=== PATIENT | female | born 1980 | race African-American/Black ===

== ENCOUNTER 2017-12-03 02:56 | Emergency (ER) | payer SELFPAY ==
[2017-12-03] MEDS ORDERED: SODIUM CHLORIDE 1,000 ML IV STA (03:30)
[2017-12-03] MEDS ORDERED: ONDANSETRON 4 MG/2 ML VIAL IVPB ONE (03:30)
[2017-12-03] MEDS ORDERED: GLUCAGON 1 MG KIT IVPUSH ONE (03:32)
[2017-12-03 03:36] VITALS: BP 125/78; PULSE 81; TEMP 97.4; BMI 29.5
[2017-12-03 03:43] LABS: BASO % 0.8 % (0-2.0); EOS % 1.1 % (0-4.5); HEMATOCRIT 37.2 % (32.4-45.2); HEMOGLOBIN 12.7 GM/dL (10.7-15.3); MCH 31.8 pg (25.7-33.7); MCHC 34.2 g/dl (32.0-36.0); MEAN CELL VOLUME 93.2 fl (80-96); MEAN PLT VOLUME 9.6 fl (7.5-11.1); NEUT % 68.1 % (42.8-82.8); PLATELET COUNT 181 K/MM3 (134-434); RBC 3.99 M/mm3 (3.60-5.2); WHITE BLOOD COUNT 8.3 K/mm3 (4.0-10.0)
--- NOTE | 2017-12-03 03:52 | PDOC ---
History of Present Illness - General History Source: Patient Exam Limitations: No Limitations - History of Present Illness Initial Comments: 12/03/17 04:00 The patient is a 37 year old female with no significant PMH who presents to the emergency department for evaluation of epigastric abdominal pain. She describes her abdominal pain as an intermittent epigastric discomfort which lasts for a few minutes at a time with associated nausea. The patient denies sick contacts or recent travel. As per EMS, the patient was on a street corner and waved down EMS to stop, prompting her presentation. The patient denies chest pain, shortness of breath, headache and dizziness. Denies fever, chills, nausea, vomit, diarrhea and constipation. Denies dysuria, frequency, urgency and hematuria. Allergies: NKA Past surgical history: . Social history: No reported cigarette, alcohol, or drug use. PCP: None reported. <Kalen Woodson - Last Filed: 12/03/17 04:00> - General History Source: Patient Exam Limitations: No Limitations <Kalen Fajardo - Last Filed: 12/03/17 04:48> - General Chief Complaint: Pain Stated Complaint: abdominal pain Time Seen by Provider: 12/03/17 03:04 Past History <Kalen Woodson - Last Filed: 12/03/17 04:00> - Suicide/Smoking/Psychosocial Hx Smoking History: Never smoked Have you smoked in the past 12 months: No Information on smoking cessation initiated: No Hx Alcohol Use: No Drug/Substance Use Hx: No <Kalen Fajardo - Last Filed: 12/03/17 04:48> - Past Medical History Allergies/Adverse Reactions: Allergies Allergy/AdvReac Type Severity Reaction Status Date / Time No Known Allergies Allergy Verified 12/03/17 03:30 Review of Systems - Review of Systems Able to Perform ROS?: Yes Comments:: 12/03/17 04:01 GENERAL/CONSTITUTIONAL: No fever or chills. No weakness. HEAD, EYES, EARS, NOSE AND THROAT: No change in vision. No ear pain or discharge. No sore throat. CARDIOVASCULAR: No chest pain or shortness of breath. RESPIRATORY: No cough, wheezing, or hemoptysis. GASTROINTESTINAL: (+) Epigastric discomfort. (+) Nausea. No vomiting, diarrhea or constipation. GENITOURINARY: No dysuria, frequency, or change in urination. MUSCULOSKELETAL: No joint or muscle swelling or pain. No neck or back pain. SKIN: No rash NEUROLOGIC: No headache, vertigo, loss of consciousness, or change in strength/ sensation. ENDOCRINE: No increased thirst. No abnormal weight change. HEMATOLOGIC/LYMPHATIC: No anemia, easy bleeding, or history of blood clots. ALLERGIC/IMMUNOLOGIC: No hives or skin allergy. <Kalen Woodson - Last Filed: 12/03/17 04:00> *Physical Exam - Vital Signs Last Vital Signs Temp Pulse Resp BP Pulse Ox 97.4 F L 81 19 125/78 100 12/03/17 03:26 12/03/17 03:26 12/03/17 03:26 12/03/17 03:26 12/03/17 03:26 - Physical Exam Comments: 12/03/17 04:01 GENERAL: Awake, alert, and fully oriented, in no acute distress HEAD: No signs of trauma EYES: PERRLA, EOMI, sclera anicteric, conjunctiva clear ENT: Auricles normal inspection, hearing grossly normal, nares patent, oropharynx clear without exudates. Moist mucosa NECK: Normal ROM, supple, no lymphadenopathy, JVD, or masses LUNGS: Breath sounds equal, clear to auscultation bilaterally. No wheezes, and no crackles HEART: Regular rate and rhythm, normal S1 and S2, no murmurs, rubs or gallops ABDOMEN: (+) Mild epigastric tenderness. Negative [place] sign. Soft, normoactive bowel sounds. No guarding, no rebound. No masses EXTREMITIES: Normal range of motion, no edema. No clubbing or cyanosis. No cords, erythema, or tenderness NEUROLOGICAL: Cranial nerves II through XII grossly intact. Normal speech, normal gait SKIN: Warm, Dry, normal turgor, no rashes or lesions noted. <Kalen Woodson - Last Filed: 12/03/17 04:00> - Vital Signs Last Vital Signs Temp Pulse Resp BP Pulse Ox 97.4 F L 81 19 125/78 100 12/03/17 03:26 12/03/17 03:26 12/03/17 03:26 12/03/17 03:26 12/03/17 03:26 <Kalen Fajardo - Last Filed: 12/03/17 04:48> ED Treatment Course - LABORATORY CBC & Chemistry Diagram: 12/03/17 03:35 12/03/17 03:35 - ADDITIONAL ORDERS Additional order review: Laboratory Results 12/03/17 03:35 Serum , Qual Negative 12/03/17 03:35 RBC 3.99 MCV 93.2 MCHC 34.2 RDW 12.0 MPV 9.6 Neutrophils % 68.1 Lymphocytes % 19.0 Monocytes % 11.0 H Eosinophils % 1.1 Basophils % 0.8 - Medications Given in the ED: ED Medications Discontinued Medications Generic Name Dose Route Start Last Admin Trade Name Kathryn PRN Reason Stop Dose Admin Glucagon 1 mg 12/03/17 03:32 12/03/17 03:52 Glucagon - IVPUSH 12/03/17 03:33 Not Given ONCE ONE Ondansetron HCl 4 mg 12/03/17 03:30 12/03/17 03:50 Zofran Injection IVPB 12/03/17 03:31 4 mg ONCE ONE Administration <Kalen Woodson - Last Filed: 12/03/17 04:00> - LABORATORY CBC & Chemistry Diagram: 12/03/17 03:35 12/03/17 03:35 <Kalen Fajardo - Last Filed: 12/03/17 04:48> Medical Decision Making - Medical Decision Making 12/03/17 03:47 A portion of this note was documented by scribe services under my direction. I have reviewed the details of the note, within reason, and agree with the documentation with the following case summary and management plan written by me. Patient treated in the ED. Nursing notes are reviewed and incorporated into the medical decision-making. Vital signs reviewed. Peripheral IV access obtained by the nurse, laboratory studies are drawn and sent, reviewed and interpreted by myself. Vital Signs Temp Pulse Resp BP Pulse Ox 97.4 F L 81 19 125/78 100 12/03/17 03:26 12/03/17 03:26 12/03/17 03:26 12/03/17 03:26 12/03/17 03:26 37-year-old female patient reportedly no past medical history presents with intermittent few minutes of epigastric abdominal discomfort. Had some nausea but denies any fevers or vomiting. Denies dysuria or diarrhea. Denies sick contacts or recent travels. According to EMS, the patient was outside and on the street corner and flag down EMS. Patient does have a history of a . The patient has minimal tenderness in the epigastric and negative Amin sign. Differential includes gastritis. I have low suspicion for acute cholecystitis, pancreatitis. However, we'll draw blood work and treat with IV fluids. If the patient reports feeling better and work was unremarkable, the patient can be discharged with outpatient follow-up. 12/03/17 04:47 CBC, BMP 12/03/17 03:35 12/03/17 03:35 CMP Sodium 138 mmol/L (136-145) 12/03/17 03:35 Potassium 3.7 mmol/L (3.5-5.1) 12/03/17 03:35 Chloride 106 mmol/L (98-107) 12/03/17 03:35 Carbon Dioxide 25 mmol/L (21-32) 12/03/17 03:35 Anion Gap 7 (8-16) L 12/03/17 03:35 BUN 9 mg/dL (7-18) 12/03/17 03:35 Creatinine 0.8 mg/dL (0.55-1.02) 12/03/17 03:35 Creat Clearance w eGFR > 60 (>60) 12/03/17 03:35 Random Glucose 89 mg/dL (74-106) 12/03/17 03:35 Calcium 8.9 mg/dL (8.5-10.1) 12/03/17 03:35 Total Bilirubin 0.5 mg/dL (0.2-1.0) 12/03/17 03:35 AST 44 U/L (15-37) H 12/03/17 03:35 ALT 42 U/L (12-78) 12/03/17 03:35 Alkaline Phosphatase 78 U/L (45-117) 12/03/17 03:35 Total Protein 7.2 g/dl (6.4-8.2) 12/03/17 03:35 Albumin 3.6 g/dl (3.4-5.0) 12/03/17 03:35 Lipase 81 U/L (73-393) 12/03/17 03:35 Serum , Qual Negative 12/03/17 03:35 Pt reports feeling better. Will discharge with PMD follow up. I discussed the physical exam findings, ancillary test results and final diagnoses with the patient. I answered all of the patient's questions. The patient was satisfied with the care received and felt comfortable with the discharge plan and treatment plan. The patient will call their primary care physician within 24 hours to arrange follow-up and will return to the Emergency Department with any new, persistant or worsening symptoms. <Kalen Fajardo - Last Filed: 12/03/17 04:48> *DC/Admit/Observation/Transfer - Attestations Scribe Attestion: 12/03/17 04:01 Documentation prepared by Kalen Woodson, acting as certified medical dosimetrist for Kalen Fajardo MD. <Kalen Woodson - Last Filed: 12/03/17 04:00> - Discharge Dispostion Decision to Admit order: No <Kalen Fajardo - Last Filed: 12/03/17 04:48> Diagnosis at time of Disposition: Gastritis Qualifiers: Gastritis type: unspecified gastritis Chronicity: acute Gastritis bleeding: without bleeding Qualified Code(s): K29.00 - Acute gastritis without bleeding - Discharge Dispostion Disposition: HOME Condition at time of disposition: Good - Referrals Referrals: Weston West MD [Staff Physician] - - Patient Instructions Printed Discharge Instructions: DI for Gastritis Additional Instructions: Please take 650 mg tylenol every 4 hours as needed for pain. Please make an appointment with a primary care physician. Call to schedule an appointment.
[2017-12-03 04:10] LABS: ALBUMIN 3.6 g/dl (3.4-5.0); ANION GAP 7 (8-16); BILIRUBIN,TOTAL 0.5 mg/dL (0.2-1.0); BLOOD UREA NITROGEN 9 mg/dL (7-18); CALCIUM 8.9 mg/dL (8.5-10.1); CHLORIDE 106 mmol/L (98-107); CO2 25 mmol/L (21-32); CREATININE 0.8 mg/dL (0.55-1.02); GLUCOSE,RANDOM 89 mg/dL (74-106); LIPASE 81 U/L (73-393); POTASSIUM 3.7 mmol/L (3.5-5.1); SGOT/AST 44 U/L (15-37); SGPT/ALT 42 U/L (12-78); SODIUM 138 mmol/L (136-145); TOT PROT 7.2 g/dl (6.4-8.2)
[2017-12-03 04:11] LABS: ALK PHOS 78 U/L (45-117)
== END 2017-12-03 04:54 | disposition home or self-care (01) ==
LOC: JER 02:56
PROC: 3E033GC Introduction of Other Therapeutic Substance into Peripheral Vein, Percutaneous Approach (ICD-10-PCS; principal; 2017-12-03)
PROC: 3E0337Z Introduction of Electrolytic and Water Balance Substance into Peripheral Vein, Percutaneous Approach (ICD-10-PCS; 2017-12-03)
DX: K29.00 Acute gastritis without bleeding (principal)
CPT/HCPCS: 36415; 80053; 83690; 84703; 85025; 96361; 96374; 99282-25; J7030